=== PATIENT | female | born 2000 | race Caucasian/White ===

== ENCOUNTER 2024-04-21 15:09 | Emergency (ER) | payer OTHER, BC ==
[2024-04-21 15:15] VITALS: BP 101/68; PULSE 94; RESP 20; TEMP 98.6; BMI 25.6
[2024-04-21] MEDS ORDERED: ACETAMINOPHEN 325 MG TABLET (FP) ONE (15:42)
[2024-04-21] MEDS: ACETAMINOPHEN 325 MG TABLET (FP) PO ONE (15:46)
== END 2024-04-21 16:55 | disposition home or self-care (01) ==
LOC: JERFT 15:09
DX: M54.2 Cervicalgia (principal); V43.52XA Car driver injured in collision with other type car in traffic accident, initial encounter
CPT/HCPCS: 99283-25